=== PATIENT | male | born 1970 | race Caucasian/White ===

== ENCOUNTER 2017-02-11 14:46 | Emergency (ER) | payer SELFPAY ==
--- NOTE | ~2017-02-11 | ER ---
PATIENT'S NAME: JULIAN ZAMUDIO [facility] AGE: 46 Y [address] ROOM: [place] [address] LOCATION: ED ADMIT DATE: 02/11/2017 ER/Outpatient Report DISCHARGE DATE: 02/11/2017 FAMILY PHYSICIAN: Alberta Posadas PA-C ATTENDING PHYSICIAN: Italo Hernandez Time of Arrival: 1446. Time of Evaluation: 1500. CHIEF COMPLAINT: Blurry vision. HISTORY OF PRESENT ILLNESS: This is a 46-year-old male who presents to the ER with his sister. He states that he had an episode where he lost his sight of vision this morning. The patient states that he woke up at 8 o'clock to shut his alarm off, he went and laid back down for another 15 minutes, and then when he got up after that he says he could not see out of both of his eyes. He states it lasted for approximately an hour and 15 minutes. He states when his vision started to come back he was able to see large objects. He states that his left eye is very erythematic. He states he is having a lot of photophobia in that eye. He states 2 weeks ago he was taking a shower and was wiping off with a clean bath towel and felt like he maybe got something in his eye at that time. He states he tried to flush it out with some Visine. He feels like his left eye improved after that until today. He states that he has chronic trouble with vision in his right eye since his head injury from a fall in 2011. He states he has been seeing a doctor in [place] for that and he has see an eye doctor in [place] as well. The patient denies any recent illness, no fever or chills. He states that he does have a history of hypertension and anxiety. He was on a bunch of medications and he weaned himself off those medications around 5 months ago and has not taken anything since. He denies any weakness in any extremity, any gait disturbances, but he states he does struggle with some short-term memory loss from that head injury. The patient's sister states that his primary care physician in [place] thinks that he should have some imaging done of his head and also they were going to order some iron study tests and would wonder if we could just draw those while he was here as well. ALLERGIES: NO KNOWN ALLERGIES. MEDICATIONS: None. PATIENT'S NAME: JULIAN ZAMUDIO [facility] AGE: 46 Y [address] ROOM: [place], [place] [address] LOCATION: [facility] ADMIT DATE: 02/11/2017 ER/Outpatient Report DISCHARGE DATE: 02/11/2017 FAMILY PHYSICIAN: Alberta Posadas PA-C ATTENDING PHYSICIAN: Italo Hernandez PAST MEDICAL HISTORY: 1. Short-term memory loss. 2. Hypertension. 3. Chronic back pain. 4. Visual changes right eye for several years. SOCIAL HISTORY: He does chew tobacco. Denies any drug or alcohol use. REVIEW OF SYSTEMS: A 10-point review of system was completed and was negative with the exception of those discussed in the HPI. PHYSICAL EXAMINATION: VITAL SIGNS: Height 5 feet 10 inches stated, weight 77.8 kg taken. Blood pressure is 204/100, pulse 79, respirations 18, temperature 98.9 degrees tympanically, saturations 99% on room air. [place] Coma Score is 15. Visual acuity right eye is 20/200, left eye 20/100. GENERAL: Alert, calm, well-developed male, in no acute distress. He sits in a dark room. HEENT. Head: Normocephalic. Eyes: Pupils are equal and reactive to light. His left eye is very light sensitive, has significant pain with that examination. His left eye, sclera is erythematic, irritated. He does have a foreign object noted to the 8 o'clock position just to the border of his iris. No purulent drainage noted. Ears: Auditory canals clear. Nose: Turbinates pink with no drainage. Throat: No exudates or erythema. Does display moist mucous membranes. LUNGS: Clear to auscultation bilaterally. No wheeze or crackles. Normal respiratory effort. HEART: Regular rate and rhythm. No lifts, thrills, or murmurs. EXTREMITIES: No clubbing, cyanosis, or edema. LABORATORY DATA AND X-RAYS: White blood cell 7.7, hemoglobin is 14.8, platelets 263. ANC is 4.7. INR is 1.0. CMS: Potassium 3.6, otherwise unremarkable. Magnesium is 2.0. CPK is 49, CK-MB is less than 0.5. Troponin I is less than 0.040. ProBNP is 116. Ferritin is 116.30, iron 63, TIBC is 314. EKG shows sinus rhythm. CT scan of the head was negative. CT of the orbits showed no mass. The optic nerve looks symmetric bilaterally. IMPRESSION: 1. Foreign body, left eye. 2. Visual disturbances this morning with blurred vision. 3. History of short-term memory loss. 4. History of hypertension. PATIENT'S NAME: JULIAN ZAMUDIO [facility] AGE: 46 Y [address] ROOM: [place], [place] [address] LOCATION: [facility] ADMIT DATE: 02/11/2017 ER/Outpatient Report DISCHARGE DATE: 02/11/2017 FAMILY PHYSICIAN: Alberta Posadas PA-C ATTENDING PHYSICIAN: Italo Hernandez 5. History of head injuries. ASSESSMENT AND PLAN: Discussed the patient's care with Dr. Hernandez. Dr. Hernandez also evaluated the patient. Dr. Hernandez did perform a slit-lamp and removed a small foreign object from the left eye. It did appear to be some sort of a seed or husk of a small seed. We did use Alcaine drops to the left eye and Fluorescein to his eye as well. We flushed the eye out after the slit lamp procedure. He did rest comfortably his entire stay. He had no further episodes of his visual changes. We will dismiss him to home with Polytrim eye drops which were [facility] to [facility]. We would like him to start taking his hypertension medications again. Monitor his symptoms closely. I would like him to follow up with primary care physician in 1 to 3 days and his eye doctor in 1 to 3 days. The patient and patient's sister understand and agrees with care. ANTIONE EISENBERG PA-C FOR DO FABIANA BOYKIN/alverto /[id number] ATTENDING ADDENDUM: I saw and evaluated the patient. I have discussed with the PA, agree with the PA's findings and plan and agree with the documented note above. The slit lamp exam does reveal conjunctival injection. There is photophobia, negative Beena's sign, no cell and flare. The alcaine has improved the patient's symptoms. ITALO HERNANDEZ DO d: t: 03/06/17 1502, OUTPATIENT REPORT
[2017-02-11 16:10] LABS: BASOPHIL # 0.1 K/uL (0.0-0.2); BASOPHIL % 0.8 %; EOSINOPHIL # 0.5 K/uL (0.0-0.5); EOSINOPHIL % 6.6 %; HEMATOCRIT 43.6 % (37.0-53.0); HEMOGLOBIN 14.8 g/dL (12.0-17.0); IMMATURE GRANULOCYTE % 0.3 %; LYMPHOCYTE # 1.9 K/uL (0.8-4.0); LYMPHOCYTE % 24.3 %; MCHC 33.9 gm/dL (32.0-36.5); MCV 85.3 fl (83.0-98.0); MONOCYTE # 0.6 K/uL (0.0-1.0); MONOCYTE % 7.3 %; MPV 9.5 fl (9.4-12.4); NEUTROPHIL # (ANC) 4.7 K/uL (1.4-9.0); NEUTROPHIL % 60.7 %; NRBC % 0 /100WBC (0-0.00); PLATELET COUNT 263 K/uL (150-450); RBC 5.11 M/uL (4.00-6.00); RDW-CV 11.6 % (11.9-14.6); WBC 7.7 K/uL (4.0-11.0)
[2017-02-11 16:20] LABS: PROTIME 10.1 SECONDS (9.6-11.1); PTT 28 SECONDS (25-32)
[2017-02-11 16:29] LABS: ALBUMIN 3.8 gm/dL (3.5-5.0); ALK PHOS 99 IU/L (33-138); ALT 22 IU/L (12-78); ANION GAP 12.6 (10.0-19.0); AST 14 IU/L (10-40); BLOOD UREA NITROGEN 8 mg/dL (6-24); CALCIUM 8.9 mg/dL (8.5-10.5); CHLORIDE 101 mMol/L (96-110); CO2 27 mMol/L (22-32); CPK 49 IU/L (35-332); CREATININE 0.7 mg/dL (0.6-1.3); ESTIMATED GFR (MDRD EQUATION) > 60; POTASSIUM 3.6 mMol/L (3.7-5.1); SODIUM 137 mMol/L (135-145); TOTAL BILIRUBIN 0.4 mg/dL (0.0-1.5); TOTAL PROTEIN 7.8 g/dL (6.0-8.4)
== END 2017-02-11 17:30 | disposition disaster alternative care site (69) ==
LOC: GMED 14:46
PROVIDERS: Emergency Medicine
DX: T15.92XA Foreign body on external eye, part unspecified, left eye, initial encounter (principal); H53.8 Other visual disturbances; I10 Essential (primary) hypertension